=== PATIENT | female | born 1960 | race Caucasian/White ===

== ENCOUNTER 2018-12-17 23:00 | Observation (INO) | payer MEDICARE ==
[~2018-12-17] VITALS: Ht 154.9 cm; Wt 54.6 kg
[2018-12-17] MEDS ORDERED: CLOPIDOGREL75 M2 PO (23:28)
[2018-12-17] MEDS ORDERED: CLONIDINE HYDR0.2 MG PO (23:29)
[2018-12-17] MEDS ORDERED: ALDACTONE 25MG25 MG PO (23:29)
[2018-12-17] MEDS ORDERED: COZAAR25 M1 PO (23:30)
[2018-12-17] MEDS ORDERED: KLONOPIN 0.5MG0.5 MG PO (23:30)
[2018-12-17] MEDS ORDERED: TEMAZEPAM PO (23:31)
[2018-12-17] MEDS ORDERED: NEURONTIN300 MG/CAP PO (23:36)
[2018-12-17] MEDS ORDERED: GABAPENTIN TAB600 MG PO (23:36)
[2018-12-17] MEDS ORDERED: ED TYLENOL6 UDTAB/BO PO (23:37)
[2018-12-17] MEDS ORDERED: PHENERGAN 25 TA25 MG PO (23:38)
[2018-12-18] VITALS (9 sets, daily range): BP systolic 99–182; BP diastolic 62–102
[2018-12-18 01:15] LABS: EOS # 0.3 (0.04-0.40); EOS % 5.9 % (1.0-5.0); HEMATOCRIT 35.1 % (37.0-47.0); HEMOGLOBIN 11.9 g/dL (12.5-16.0); LYMPH# 1.5 (1.50-4.00); MEAN CELL VOLUME 92 fl (78-100); MEAN CORPUSCULAR HEMOGLOBIN 31 pg (27-31); MEAN CORPUSCULAR HGB CONC 34 g/dL (33-37); MEAN PLATELET VOLUME 8.6 fl (7.4-10.4); MONO # 0.5 (0.20-0.80); NEU # 3.1 (1.40-6.50); PLATELET COUNT 327 K/mm3 (130-400); RED CELL DISTRIBUTION WIDTH 14.4 % (11.5-14.5); WHITE BLOOD COUNT 5.4 K/mm3 (4.8-10.8)
[2018-12-18 01:24] LABS: PH-URINE 5.5 (5.0 - 8.0); URINE APPEARANCE CLEAR; URINE BILIRUBIN NEGATIVE (NEGATIVE); URINE BLOOD NEGATIVE (NEGATIVE); URINE COLOR LT YELLOW; URINE GLUCOSE NEGATIVE (NEGATIVE); URINE KETONE NEGATIVE (NEGATIVE); URINE LEUKOCYTE ESTERASE NEGATIVE (NEGATIVE); URINE NITRATE NEGATIVE (NEGATIVE); URINE PROTEIN(semi-quant) NEGATIVE (NEGATIVE); URINE UROBILINOGEN NORMAL (NORMAL)
[2018-12-18 01:31] LABS: ALBUMIN 4.2 g/dL (3.5-5.0); CALCIUM 9.6 mg/dL (8.3-10.5); POTASSIUM 3.5 mmol/L (3.5-5.1); TOTAL BILIRUBIN 0.2 mg/dL (0.2-1.2); TOTAL PROTEIN 6.2 g/dL (6.4-8.3)
--- NOTE | 2018-12-18 07:00 | NUR ---
REPORT RECEIVED FROM MANUEL HAYES.
--- NOTE | 2018-12-18 07:44 | NUR ---
JUST OFF PHONE WITH HER BROTHER. PATIENT BECOMES TEARFUL SHE EXPLAINS [place] FE[place] A[place] AND NOT HAVING MANY FRIENDS. HER BROTHER IS NOT HERE THIS MORNING DUE TO A . PATIENT'S LAST APRIL AND PATIENT VERBALIZES MISSING HIM. SHE STATES "HE WAS WITH ME ALL THE TIME. THAT'S WHY I DIDN'T WANT TO GO HOME. I DIDN'T WANT TO BE THERE ALL ALONE AND HAVE SOMETHING HAPPEN." HX OF STROKE WHILE LIVING IN [place] WHILE SHE WAS HOME ALONE; SHE RECALLS LYING ON FLOOR FOR SEVERAL HOURS BEFORE HER CAME HOME TO FIND HER AND CALLED FOR HELP. NO OBVIOUS NEURO DEFICIT NOTED FROM BEDSIDE, HOWEVER ON EXAM PATIENT DOES HAVE A SLIGHTLY WEAKER LT BAR TACKER SEWING MACHINE THAN RT. MEDICARE COORDINATOR ARE BOTH STRONG. PUPILS EQUAL AND REACTIVE BILAT. C/O HEAD PRESSURE 10/10 AND REQUESTS ADVIL. ORDER TO BE REQUESTED.
--- NOTE | 2018-12-18 12:50 | NUR ---
SLOUCHED DOWN IN BED WITH EYES CLOSED. TV ON PLAYING A MUSICAL. PATIENT AWAKENS EASILY TO TOUCH AND REPORTS THE SINGING ON THE TV PUT HER TO SLEEP. CONTINUES TO HAVE SOME ANXIETY REGARDING HOSPITALIZATION. PATIENT ALSO DISCUSSES NOT WANTING TO NOTIFY HER SISTER OF HOSPITALIZATION UNTIL HER DISCHARGE. THIS STORY LEADS INTO SHARING HOW HER NIECE TRIED TO KILL HER SISTER AND THAT ALL HER SIBLINGS HAVE A NO CONTACT ORDER IN PLACE, EXCEPT FOR THE OLDEST BROTHER, WHO SEEMS TO KEEP TABS ON THE NIECE FOR THE FAMILY. ACTIVE LISTENING WITH POSITIVE ENCOURAGEMENT PROVIDED, HOWEVER, PATIENT EXPRESSES INCREASED ANXIETY TALKING ABOUT SITUATION. NEURO CHECK COMPLETE. PATIENT DOES MENTION THE LEFT SIDE OF HER FACE "FEELS FUNNY." WHEN ASKED TO EXPAND ON DEFINITION, PATIENT UNABLE TO SAY; JUST STATES "IT HAS FELT THIS WAY SINCE THE TIA LAST WEEK. I THINK IT WILL JUST REMAIN THIS WAY." PATIENT ALLOWED TIME TO REST.
--- NOTE | 2018-12-18 14:30 | NUR ---
RESTING IN BED ON RT SIDE. C/O NAUSEA AND FEELING AN INCREASED PULSE TO HER NECK. ALSO REPORTS THAT HER ENTIRE LT SIDE IS ACHING. VSS- BP 122/77 P 80 SPO2 98 ROOM AIR. BINU KLINE NOTIFIED; NO NEW ORDERS AT THIS TIME.
--- NOTE | 2018-12-18 16:22 | NUR ---
PATIENT CONTINUES TO REPORT NOT FEELING WELL. SHE USES CALL LIGHT TO REQUEST FSBS, SHE BELIEVES A LOW BLOOD SUGAR MAY BE THE CAUSE. GRACIE IQBAL REPORTS FSBS 97.
--- NOTE | 2018-12-18 16:45 | NUR ---
NEURO ASSESSMENT COMPLETE. PATIENT REMAINS IN BED WITH HOB ELEVATED. SLIGHTLY DROWSY FROM PHENERGAN, WHICH SHE REPORTS IS HELPING HER FEEL BETTER. SPEECH CLEAR. SLIGHT DROOP NOTED TO LT SIDE OF MOUTH, WHICH MAY BE MORE EVIDENT GIVEN PATIENT'S RELAXED NATURE AT THIS TIME. HAND MINER FEEL EQUAL AT THIS TIME. C/O DISCOMFORT TO LT SIDE OF BODY- WILL GIVE PRN MOTRIN.
--- NOTE | 2018-12-18 19:06 | NUR ---
REPORT PROVIDED TO PARDEEP HAYES.
--- NOTE | 2018-12-18 19:09 | NUR ---
REPORT RECEIVED FROM SHABANA Cohen RN.
--- NOTE | 2018-12-18 20:00 | NUR ---
PATIENT OBSERVED TO BE SITTING UP IN BED, WATCHING TV. SHE DOES NOT APPEAR TO BE IN ANY OBVIOUS DISTRESS. SHE IS ALERT AND ORIENTED, PLEASANT AND COOPERATIVE. PATIENT REPORTS HER BROTHER IS COMING TO VISIT HER AND HE ARRIVES SHORTLY AFTER. PATIENT CONSUMES HER MEDICATION WITH NO DIFFICULTY AND ASKS FOR A REFILL OF HER WATER PITCHERS, NO ICE. PATIENT DENIES PAIN AND ANY OTHER NEEDS. SHE REQUESTS TO BE ORDERED RESTORIL SHE WANTS TO SLEEP WELL SO SHE CAN FEEL BETTER TOMORROW AND GO HOME. PATIENT MAINTAINS ROOM PRIVILAGES. BED RAILS UP X2. CALL LIGHT WITHIN REACH. CLOSE MONITORING AND HOURLY ROUNDING CONTINUE.
[2018-12-19 03:24] VITALS: BP 119/77
[2018-12-19 06:11] VITALS: BP 138/83
--- NOTE | 2018-12-19 07:17 | NUR ---
REPORT GIVEN TO CALVIN Davalos RN.
[2018-12-19] MEDS ORDERED: LOPRESSOR 225 MG/TAB PO (08:22)
[2018-12-19 08:52] VITALS: BP 151/91
--- NOTE | 2018-12-19 09:20 | NUR ---
REPORT WAS RECEIVED BY FREDDY LANGFORD THIS AM. PATIENT ALERT AND WALKING AROUND HER ROOM. PATIENT WORRIED ABOUT HER GABAPENTIN DOSE THAT SHE IS WANTING NOW AT SHIFT CHANGE. EXPLAINED PATIENT THE MED SCHEDULE SHE IS ON AND SHE VERBALIZES UNDERSTANDING BUT FEELS SHE SHOULD GET IT NOW. THIS NURSE WALKED OUT OF ROOM WITH ANASTASIYA AND BACK TO ROOM TO DO ASSESSMENT. PATIENT WAS COOPERATIVE BUT NERVOUS ACTING. PATIENT GOT HER MEDS A LITTLE EARLY DUE TO HER REQUEST. PATIENT ALSO MENTIONS SHE WOULD LIKE TO GO HOME THIS MORNING. PATIENT CALLED HER BROTHER AT 0830 AND TOLD STAFF SHE NEEDED TO GO. PATIENT'S BROTHER ARRIVED AND DISCHARGE INSTRUCTIONS PRINTED AND GIVEN TO PATIENT. PATIENT AMBULATORY OUT OF DEPARTMENT WITH HER BROTHER AND ALL OF HER BELONGINGS. PATIENT IS INSISTENT ON LEAVING AND TOOK SELF OFF TELE; STAFF TOOK OUT INT AND RECHECKED BLOOD PRESSURE. PATIENT REPORTS SHE WAS LEAVING EVEN IF BP WAS ELEVATED SHE DIDN'T FEEL BAD RIGHT NOW AND WAS READY TO GO. ROYER NOTIFIED AND PATIENT LEFT.
== END 2018-12-19 09:20 | disposition home or self-care (01) ==
LOC: ED 23:00 → MED/SURG 12-18 02:04
PROVIDERS: ADMIT Family Medicine
DX: G45.9 Transient cerebral ischemic attack, unspecified (principal); I10 Essential (primary) hypertension; F41.9 Anxiety disorder, unspecified; Z79.02 Long term (current) use of antithrombotics/antiplatelets; Z88.6 Allergy status to analgesic agent; Z88.8 Allergy status to other drugs, medicaments and biological substances; E31.22 Multiple endocrine neoplasia [MEN] type IIA; Z87.442 Personal history of urinary calculi; Z90.710 Acquired absence of both cervix and uterus; F17.210 Nicotine dependence, cigarettes, uncomplicated
CPT/HCPCS: G0378

== ENCOUNTER → 2019-02-27 | Outpatient (CLI) | payer MEDICARE ==
[~2019-02-27] MED LIST: ALDACTONE 25MG25 MG PO; CLONIDINE HYDR0.2 MG PO; CLOPIDOGREL75 M2 PO; COZAAR25 M1 PO; ED TYLENOL6 UDTAB/BO PO; GABAPENTIN TAB600 MG PO; KLONOPIN 0.5MG0.5 MG PO; LOPRESSOR 225 MG/TAB PO; NEURONTIN300 MG/CAP PO; PHENERGAN 25 TA25 MG PO; TEMAZEPAM PO
== END ==
LOC: LAB 08:18
DX: E31.22 Multiple endocrine neoplasia [MEN] type IIA (principal); I15.2 Hypertension secondary to endocrine disorders

== ENCOUNTER → 2019-03-12 | Outpatient (CLI) | payer MEDICARE | LOC: LAB 11:56 | DX: E31.22 Multiple endocrine neoplasia [MEN] type IIA (principal); I15.2 Hypertension secondary to endocrine disorders ==

== ENCOUNTER → 2019-03-13 | Outpatient (CLI) | payer MEDICARE | LOC: LAB 07:41 | DX: E31.22 Multiple endocrine neoplasia [MEN] type IIA (principal); I15.2 Hypertension secondary to endocrine disorders ==

== ENCOUNTER 2019-12-29 09:16 | Emergency (ER) | payer MEDICARE ==
[2019-12-29] MEDS ORDERED: CLONIDINE HYDR0.3 MG PO (09:32)
[2019-12-29] MEDS ORDERED: LOPRESSOR 550 MG/TAB PO (09:32)
[2019-12-29] MEDS ORDERED: LOSARTAN POTAS100 MG PO (09:33)
[2019-12-29] MEDS ORDERED: ATORVASTATIN CA20 MG PO (09:36)
[2019-12-29] MEDS ORDERED: DESYREL 100MG100 MG PO (09:38)
[2019-12-29] MEDS ORDERED: ASPIRIN E.C. 8181 MG PO (09:39)
[2019-12-29 10:14] LABS: HEMATOCRIT 30.3 % (37.0-47.0); HEMOGLOBIN 10.7 g/dL (12.5-16.0); MEAN CELL VOLUME 92 fl (78-100); MEAN CORPUSCULAR HEMOGLOBIN 33 pg (27-31); MEAN CORPUSCULAR HGB CONC 35 g/dL (33-37); MEAN PLATELET VOLUME 8.9 fl (7.4-10.4); PLATELET COUNT 462 K/mm3 (130-400); RED BLOOD COUNT 3.29 M/mm3 (4.10-5.30); RED CELL DISTRIBUTION WIDTH 13.4 % (11.5-14.5); WHITE BLOOD COUNT 18.2 K/mm3 (4.8-10.8)
[2019-12-29 10:27] LABS: BAND 1 % (0-10); LYMPHOCYTE 4 % (20-51); MONOCYTE 6 % (3-10); NEUTROPHILS 88 % (42-75)
[2019-12-29 10:29] LABS: ALBUMIN 3.5 g/dL (3.4-4.8)
[2019-12-29 10:31] LABS: TOTAL PROTEIN 6.4 g/dL (6.2-8.1)
[2019-12-29 10:33] LABS: TOTAL BILIRUBIN 0.3 mg/dL (0.2-1.2)
[2019-12-29 10:33] LABS: URINE APPEARANCE CLEAR; URINE BILIRUBIN NEGATIVE (NEGATIVE); URINE BLOOD TRACE (NEGATIVE); URINE COLOR YELLOW; URINE GLUCOSE NEGATIVE (NEGATIVE); URINE KETONE 3+ (NEGATIVE); URINE LEUKOCYTE ESTERASE NEGATIVE (NEGATIVE); URINE MUCUS PRESENT (NOT PRESENT); URINE NITRATE NEGATIVE (NEGATIVE); URINE PROTEIN(semi-quant) 2+ mg/dL (NEGATIVE); URINE UROBILINOGEN NORMAL (NORMAL)
[2019-12-29 10:35] LABS: POTASSIUM 2.9 mmol/L (3.5-5.1)
[2019-12-29 18:20] VITALS: BP 253/120
== END 2019-12-29 18:20 | disposition short-term general hospital (02) ==
LOC: ED 09:16
PROVIDERS: Family Medicine
DX: J18.9 Pneumonia, unspecified organism (principal); K81.9 Cholecystitis, unspecified; E87.6 Hypokalemia; E87.1 Hypo-osmolality and hyponatremia; I10 Essential (primary) hypertension; F17.210 Nicotine dependence, cigarettes, uncomplicated; Z20.828 Contact with and (suspected) exposure to other viral communicable diseases; Z79.82 Long term (current) use of aspirin; Z86.73 Personal history of transient ischemic attack (TIA), and cerebral infarction without residual deficits; Z87.442 Personal history of urinary calculi; Z90.710 Acquired absence of both cervix and uterus
CPT/HCPCS: J1885; J2405; J2543; J3480; J7030; Q9967

== ENCOUNTER → 2020-01-28 | Outpatient (CLI) | payer MEDICARE ==
[2019-12-29 18:20] VITALS: BP 253/120
[~2020-01-28] MED LIST changes: +ASPIRIN E.C. 8181 MG PO; +ATORVASTATIN CA20 MG PO; +CLONIDINE HYDR0.3 MG PO; +DESYREL 100MG100 MG PO; +LOPRESSOR 550 MG/TAB PO; +LOSARTAN POTAS100 MG PO
== END ==
LOC: LAB 11:35
DX: E31.22 Multiple endocrine neoplasia [MEN] type IIA (principal); I15.2 Hypertension secondary to endocrine disorders; R19.8 Other specified symptoms and signs involving the digestive system and abdomen; Z86.018 Personal history of other benign neoplasm; Z79.52 Long term (current) use of systemic steroids; I16.0 Hypertensive urgency

== ENCOUNTER → 2020-01-29 | Outpatient (CLI) | payer MEDICARE | LOC: LAB 11:45 | DX: E31.22 Multiple endocrine neoplasia [MEN] type IIA (principal); I15.2 Hypertension secondary to endocrine disorders; I16.0 Hypertensive urgency ==

== ENCOUNTER → 2020-01-30 | Outpatient (CLI) | payer MEDICARE ==
[2020-02-05 14:38] LABS: CORTISOL, AM (0800) 1
== END ==
LOC: LAB 08:07
DX: E31.22 Multiple endocrine neoplasia [MEN] type IIA (principal); I15.2 Hypertension secondary to endocrine disorders

== ENCOUNTER 2020-05-11 09:16 | Emergency (ER) | payer MEDICARE, MEDICAID ==
[~2020-05-11] VITALS: Wt 53.1 kg
[2020-05-11 09:41] LABS: EOS # 0.1 (0.04-0.40); EOS % 0.9 % (1.0-5.0); HEMATOCRIT 33.2 % (37.0-47.0); HEMOGLOBIN 11.1 g/dL (12.5-16.0); LYMPH# 1.2 (1.50-4.00); MEAN CELL VOLUME 84 fl (78-100); MEAN CORPUSCULAR HEMOGLOBIN 28 pg (27-31); MEAN CORPUSCULAR HGB CONC 33 g/dL (33-37); MEAN PLATELET VOLUME 9.1 fl (7.4-10.4); MONO # 0.6 (0.20-0.80); NEU # 4.9 (1.40-6.50); PLATELET COUNT 378 K/mm3 (130-400); RED BLOOD COUNT 3.95 M/mm3 (4.10-5.30); RED CELL DISTRIBUTION WIDTH 17.8 % (11.5-14.5); WHITE BLOOD COUNT 6.8 K/mm3 (4.8-10.8)
[2020-05-11 09:59] LABS: ALBUMIN 4.2 g/dL (3.4-4.8)
[2020-05-11 10:00] LABS: POTASSIUM 3.7 mmol/L (3.5-5.1); SODIUM 130 mmol/L (136-145)
[2020-05-11 10:01] LABS: CALCIUM 9.3 mg/dL (8.3-10.5)
[2020-05-11 10:02] LABS: GLUCOSE 100 mg/dL (65-105); TOTAL PROTEIN 7.1 g/dL (6.2-8.1)
[2020-05-11 10:03] LABS: CARBON DIOXIDE 18 mmol/L (23-31)
[2020-05-11 10:04] LABS: TOTAL BILIRUBIN 0.4 mg/dL (0.2-1.2)
[2020-05-11 10:07] LABS: AST-SGOT 13 U/L (5-34)
[2020-05-11 10:08] LABS: ALT/SGPT 11 U/L (0-55)
[2020-05-11 10:30] LABS: TROPONIN-I < 0.03 ng/mL (<0.030)
[2020-05-11 14:14] VITALS: BP 152/64
== END 2020-05-11 13:44 | disposition home or self-care (01) ==
LOC: ED 09:16
PROVIDERS: Family Medicine
DX: I95.1 Orthostatic hypotension (principal); E86.9 Volume depletion, unspecified; F17.200 Nicotine dependence, unspecified, uncomplicated; I10 Essential (primary) hypertension; Z20.828 Contact with and (suspected) exposure to other viral communicable diseases; Z86.73 Personal history of transient ischemic attack (TIA), and cerebral infarction without residual deficits; Z90.49 Acquired absence of other specified parts of digestive tract; Z90.710 Acquired absence of both cervix and uterus; Z79.82 Long term (current) use of aspirin
CPT/HCPCS: J7030

== ENCOUNTER 2021-06-22 12:29 | Emergency (ER) | payer MEDICARE, MEDICAID ==
[~2021-06-22] VITALS: Ht 162.6 cm; Wt 48.8 kg
[2021-06-22] MEDS ORDERED: ED TYLENOL6 UDTAB/BO PO (13:09)
[2021-06-22 13:58] LABS: BASO # 0.03 K/mm3 (0.02-0.10); EOS # 0.07 K/mm3 (0.04-0.40); EOS % 0.5 % (1.0-5.0); HEMATOCRIT 33.6 % (37.0-47.0); HEMOGLOBIN 10.9 g/dL (12.5-16.0); LYMPH# 1.08 K/mm3 (1.50-4.00); MEAN CELL VOLUME 79 fl (78-100); MEAN CORPUSCULAR HEMOGLOBIN 26 pg (27-31); MEAN CORPUSCULAR HGB CONC 32 g/dL (33-37); MEAN PLATELET VOLUME 8.7 fl (7.4-10.4); MONO # 0.62 K/mm3 (0.20-0.80); NEU # 11.17 K/mm3 (1.40-6.50); PLATELET COUNT 373 K/mm3 (130-400); RED BLOOD COUNT 4.23 M/mm3 (4.10-5.30); RED CELL DISTRIBUTION WIDTH 20.1 % (11.5-14.5)
[2021-06-22 14:10] LABS: ALBUMIN 3.8 g/dL (3.4-4.8); POTASSIUM 4.8 mmol/L (3.5-5.1)
[2021-06-22 14:11] LABS: CALCIUM 9.2 mg/dL (8.3-10.5)
[2021-06-22 14:13] LABS: TOTAL PROTEIN 6.3 g/dL (6.2-8.1)
[2021-06-22 14:14] LABS: TOTAL BILIRUBIN 0.3 mg/dL (0.2-1.2)
[2021-06-22 17:13] LABS: PH-URINE 5.5 (5.0 - 8.0); URINE APPEARANCE CLEAR; URINE BILIRUBIN NEGATIVE (NEGATIVE); URINE BLOOD NEGATIVE (NEGATIVE); URINE COLOR YELLOW; URINE GLUCOSE NEGATIVE (NEGATIVE); URINE KETONE NEGATIVE (NEGATIVE); URINE LEUKOCYTE ESTERASE TRACE (NEGATIVE); URINE MUCUS PRESENT (NOT PRESENT); URINE NITRATE NEGATIVE (NEGATIVE); URINE PROTEIN(semi-quant) 1+ mg/dL (NEGATIVE); URINE UROBILINOGEN NORMAL (NORMAL)
[2021-06-22] MEDS ORDERED: MACROBID 100 M100 MG PO (17:18)
[2021-06-22 17:43] VITALS: BP 106/72
[2021-06-22] MEDS ORDERED: TEMAZEPAM7.5 M1 PO (18:25)
== END 2021-06-22 17:45 | disposition home or self-care (01) ==
LOC: ED 12:29
PROVIDERS: Nurse Practitioner
DX: K80.20 Calculus of gallbladder without cholecystitis without obstruction (principal); I10 Essential (primary) hypertension; E87.1 Hypo-osmolality and hyponatremia; D72.829 Elevated white blood cell count, unspecified; I95.1 Orthostatic hypotension; J18.9 Pneumonia, unspecified organism; G45.9 Transient cerebral ischemic attack, unspecified; E86.9 Volume depletion, unspecified; F17.210 Nicotine dependence, cigarettes, uncomplicated; Z20.822 Contact with and (suspected) exposure to COVID-19; Z79.899 Other long term (current) drug therapy
CPT/HCPCS: J0696

== ENCOUNTER 2021-07-14 15:54 | Emergency (ER) | payer MEDICARE, MEDICAID ==
[~2021-07-14 15:54] MED LIST changes: -GABAPENTIN TAB600 MG PO; +MACROBID 100 M100 MG PO; +NEURONTIN300 M1 PO; +TEMAZEPAM7.5 M1 PO
[2021-07-14 17:01] LABS: BASO # 0.04 K/mm3 (0.02-0.10); EOS # 0.07 K/mm3 (0.04-0.40); EOS % 0.5 % (1.0-5.0); HEMATOCRIT 29.1 % (37.0-47.0); HEMOGLOBIN 9.2 g/dL (12.5-16.0); LYMPH# 2.95 K/mm3 (1.50-4.00); MEAN CELL VOLUME 83 fl (78-100); MEAN CORPUSCULAR HEMOGLOBIN 26 pg (27-31); MEAN CORPUSCULAR HGB CONC 32 g/dL (33-37); MEAN PLATELET VOLUME 8.4 fl (7.4-10.4); MONO # 1.25 K/mm3 (0.20-0.80); NEU # 8.42 K/mm3 (1.40-6.50); PLATELET COUNT 610 K/mm3 (130-400); RED BLOOD COUNT 3.52 M/mm3 (4.10-5.30); RED CELL DISTRIBUTION WIDTH 20.8 % (11.5-14.5); WHITE BLOOD COUNT 12.8 K/mm3 (4.8-10.8)
[2021-07-14 17:20] LABS: ALBUMIN 3.6 g/dL (3.4-4.8); POTASSIUM 4.4 mmol/L (3.5-5.1); SODIUM 138 mmol/L (136-145)
[2021-07-14 17:21] LABS: CALCIUM 9.2 mg/dL (8.3-10.5)
[2021-07-14 17:23] LABS: GLUCOSE 112 mg/dL (65-105)
[2021-07-14 17:24] LABS: CARBON DIOXIDE 23 mmol/L (23-31)
[2021-07-14 17:25] LABS: TOTAL BILIRUBIN 0.1 mg/dL (0.2-1.2)
[2021-07-14 17:28] LABS: AST-SGOT 15 U/L (5-34)
[2021-07-14 17:29] LABS: ALT/SGPT 12 U/L (0-55)
[2021-07-14 17:35] LABS: TROPONIN-I < 0.030 ng/mL (<0.030)
[2021-07-14 17:52] LABS: MAGNESIUM 1.8 mg/dL (1.60-2.60)
[2021-07-14] MEDS ORDERED: ALEVE220 M1 PO (18:40)
[2021-07-14 18:44] LABS: D-DIMER 0.51 mg/L FEU (0.15-0.50)
[2021-07-14 19:54] LABS: URINE APPEARANCE CLEAR; URINE BILIRUBIN 1+ (NEGATIVE); URINE BLOOD NEGATIVE (NEGATIVE); URINE COLOR YELLOW; URINE GLUCOSE NEGATIVE (NEGATIVE); URINE KETONE NEGATIVE (NEGATIVE); URINE LEUKOCYTE ESTERASE TRACE (NEGATIVE); URINE NITRATE NEGATIVE (NEGATIVE); URINE PROTEIN(semi-quant) 1+ (NEGATIVE); URINE UROBILINOGEN NORMAL (NORMAL)
[2021-07-14 19:55] LABS: URINE MUCUS PRESENT (NOT PRESENT)
[2021-07-14] MEDS ORDERED: PRILOSEC OTC20 MG PO (20:04)
[2021-07-14 20:39] VITALS: BP 139/94
== END 2021-07-14 20:39 | disposition home or self-care (01) ==
LOC: ED 15:54
PROVIDERS: Physician Assistant
DX: I16.0 Hypertensive urgency (principal); D72.829 Elevated white blood cell count, unspecified; R00.0 Tachycardia, unspecified; F17.210 Nicotine dependence, cigarettes, uncomplicated; Z86.73 Personal history of transient ischemic attack (TIA), and cerebral infarction without residual deficits; Z79.899 Other long term (current) drug therapy; Z20.822 Contact with and (suspected) exposure to COVID-19
CPT/HCPCS: Q9967